=== PATIENT | female | born 1960 | race Caucasian/White ===

== ENCOUNTER 2017-03-01 00:45 | Inpatient (IN) ==
[2017-03-01] MEDS ORDERED: *HR* Morphine 2 MG/ML SYRINGE IVP PRN (05:38)
[2017-03-01] MEDS: 0.9 % Sodium Chloride 1,000 ML IVC SCH (06:11)
[2017-03-01 06:52] LABS: Basophils # 0.1 K/mcL (0.0-0.2); Basophils % 0.5 %; Eosinophils # 0.1 K/mcL (0.0-0.6); Eosinophils % 0.6 %; Hematocrit 39.4 % (35.3-44.9); Hemoglobin 12.8 g/dL (11.5-15.4); Immature Granulocytes % 1.7 % (0-4); Lymphocytes # 1.4 K/mcL (0.6-4.6); Lymphocytes % 12.4 %; Mean Corpuscular HGB Conc 32.5 g/dL (31.6-35.5); Mean Corpuscular Hemoglobin 29.8 pg (28.0-33.3); Mean Corpuscular Volume 91.6 fL (83.0-100.0); Mean Platelet Volume 9.8 fL (9.4-12.4); Monocytes # 1.1 K/mcL (0.0-1.3); Monocytes % 9.9 %; Neutrophils # 8.3 K/mcL (1.6-8.9); Platelet Count 254 K/mcL (140-400); Segmented Neutrophils % 74.9 %
[2017-03-01 07:18] LABS: Alanine Aminotransferase 13 Units/L (0-55); Albumin 1.5 g/dL (3.5-5.0); Albumin/Globulin Ratio 0.3 (1.1-2.2); Alkaline Phosphatase 143 Units/L (38-126); Aspartate Amino Transferase 16 Units/L (5-34); BUN/Creatinine Ratio 16 (6-26); Bilirubin,Total 0.2 mg/dL (0.2-1.2); Blood Urea Nitrogen 12 mg/dL (7-20); Calcium 7.9 mg/dL (8.6-10.8); Carbon Dioxide 28 mEq/L (19-29); Chloride 101 mEq/L (98-109); Globulin 4.6 g/dL (2.4-3.5); Glucose 344 mg/dL (70-99); Osmolality,Calculated 297 (280-300); Potassium 3.9 mEq/L (3.5-4.5); Sodium 137 mEq/L (136-145); Total Protein 6.1 g/dL (6.0-8.3); eGFR For African Americans > 60 (> 60); eGFR For Non-African Americans > 60 (> 60)
[2017-03-01] MEDS ORDERED: 0.9 % Sodium Chloride 1,000 ML IVC ONE (08:46)
[2017-03-01] MEDS ORDERED: Ondansetron 4 MG/2 ML VIAL IVP PRN (08:46)
[2017-03-01] MEDS ORDERED: D5% in 0.9% NACL 1,000 ML IVC SCH (09:00)
[2017-03-01 09:08] LABS: Basophils # 0.1 K/mcL (0.0-0.2); Basophils % 0.4 %; Eosinophils # 0.1 K/mcL (0.0-0.6); Eosinophils % 0.4 %; Hematocrit 38.9 % (35.3-44.9); Hemoglobin 12.6 g/dL (11.5-15.4); Immature Granulocytes % 1.6 % (0-4); Lymphocytes # 1.3 K/mcL (0.6-4.6); Lymphocytes % 10.8 %; Mean Corpuscular HGB Conc 32.4 g/dL (31.6-35.5); Mean Corpuscular Hemoglobin 29.6 pg (28.0-33.3); Mean Corpuscular Volume 91.3 fL (83.0-100.0); Mean Platelet Volume 9.5 fL (9.4-12.4); Monocytes # 1.2 K/mcL (0.0-1.3); Neutrophils # 9.4 K/mcL (1.6-8.9); Platelet Count 246 K/mcL (140-400); Red Blood Count 4.26 M/mcL (3.82-4.97); Red Cell Distribution Width 12.1 % (11.5-14.5); Segmented Neutrophils % 76.8 %
[2017-03-01 09:19] LABS: BUN/Creatinine Ratio 14 (6-26); Blood Urea Nitrogen 10 mg/dL (7-20); Carbon Dioxide 29 mEq/L (19-29); Chloride 102 mEq/L (98-109); Glucose 339 mg/dL (70-99); Osmolality,Calculated 298 (280-300); Potassium 3.8 mEq/L (3.5-4.5); Sodium 138 mEq/L (136-145); eGFR For African Americans > 60 (> 60); eGFR For Non-African Americans > 60 (> 60)
--- NOTE | 2017-03-01 09:40 | General Surg History&Physical ---
Date of Encounter: 03/01/17 Time of Encounter: 07:30 Assessment and Plan (1) Abdominal pain Current Visit: Yes Status: Acute 57F with 10 day history of abdominal pain, now improved from when original pain started; CT scan suggestive of perforation with subsequent abscess, likley of either appendix or diveticula, most likley appendix; - NPO -IVF - abx: zosyn, likely will need PICC line for 6 weeks of antibiotics - pain control - dvt prophylaxis - activity as tolerated - incentive spirometer - albuterol PRN - IR for drainage of pelvic abscess: follow up cultures and gram stain The assessment and plan as outlined above was discussed with the patient and/or family members who expressed understanding and agreement. All questions were answered. Qualifiers: Abdominal location: lower abdomen, unspecified Qualified Code(s): R10.30 - Lower abdominal pain, unspecified (2) Pelvic abscess in female Current Visit: Yes Status: Acute see above The assessment and plan as outlined above was discussed with the patient and/or family members who expressed understanding and agreement. All questions were answered. (3) Sepsis Current Visit: Yes Status: Acute see above The assessment and plan as outlined above was discussed with the patient and/or family members who expressed understanding and agreement. All questions were answered. Qualifiers: Sepsis type: sepsis due to unspecified organism Qualified Code(s): A41.9 - Sepsis, unspecified organism History of Present Illness Chief complaint: abdominal pain HPI: Ms. Bliss is a 57 year old female presents with 10 day history of abdominal pain. The pain began on 02/19 in her lower abdomen/suprapubic region. The pain was sharp and associated with nausea and anorexia (reports eating the equivalent of 3 meals over the course of 7 days). No reports of fevers, chills , chest pain, nor shortness of breath. The patient states that her pain did get better, but was still significant enough to go to her local ER for evaluation. A CT scan was obtained, which I personally reviewed and interpreted myself, that demonstrates a loculated pelvic abscess, no evidence of free air. Past Med Surg Social Fam HX - Past Medical History Medical history: COPD, diabetes, hyperlipidemia, hypertension Psychiatric history: anxiety, depression - Past Surgical History Surgical History: other - Social History Smoking Status: Current every day smoker Smokeless Tobacco Status: No Alcohol use: occasionally Drug use: none - Family History Mother Adopted: No Living Status: Hx Family Cancer: Yes Father Adopted: No Living Status: Hx Family Endocrine Disorder: Yes Medications and Allergies No Known Home Drugs 03/01/17 [History] 3 Allergy/AdvReac Type Severity Reaction Status Date / Time No Known Allergies Allergy Verified 03/01/17 05:37 Review of Systems All systems PM: A 10-system review of systems was performed and is negative for pertinent findings except as documented above in the HPI. General Surgery Exam Initial Vital Signs Temp Pulse Resp BP Pulse Ox 98.5 F 93 17 157/83 94 03/01/17 04:38 03/01/17 04:38 03/01/17 04:38 03/01/17 04:38 03/01/17 04:38 - General physical appearance well developed - Eyes other (no scleral icterus) - ENT normocephalic - Respiratory normal expansion, normal respiratory effort, clear to auscultation - Cardiovascular Cardiovascular exam: Present: RRR - Abdomen Abdomen general surgery: Present: tender (minimally tender in all quadrants) Hernia: Present: none - Integumentary Integumentary general surgery: Present: warm and dry - Neurologic Present: CN 2-12 grossly intact - Psychiatric Psychiatric general surgery: Present: A&Ox3 Results - Labs 03/01/17 09:01 03/01/17 09:01 Abnormal lab results WBC 12.3 K/mcL (4.3-11.1) H 03/01/17 09:01 Neutrophils # 9.4 K/mcL (1.6-8.9) H 03/01/17 09:01 Glucose 339 mg/dL (70-99) H 03/01/17 09:01 POC Glucose 316 (58-89) H 03/01/17 07:47 Calcium 8.0 mg/dL (8.6-10.8) L 03/01/17 09:01 Alkaline Phosphatase 143 Units/L (38-126) H 03/01/17 06:43 Albumin 1.5 g/dL (3.5-5.0) L 03/01/17 06:43 Globulin 4.6 g/dL (2.4-3.5) H 03/01/17 06:43 Albumin/Globulin Ratio 0.3 (1.1-2.2) L 03/01/17 06:43 Diabetes panel 03/01/17 03/01/17 Range/Units 06:43 09:01 Sodium 137 138 (136-145) mEq/L Potassium 3.9 3.8 (3.5-4.5) mEq/L Chloride 101 102 (98-109) mEq/L Carbon Dioxide 28 29 (19-29) mEq/L BUN 12 10 (7-20) mg/dL Creatinine 0.77 0.71 (0.57-1.11) mg/dL Glucose 344 H 339 H (70-99) mg/dL Calcium 7.9 L 8.0 L (8.6-10.8) mg/dL AST 16 (5-34) Units/L ALT 13 (0-55) Units/L Alkaline Phosphatase 143 H (38-126) Units/L Albumin 1.5 L (3.5-5.0) g/dL Calcium panel 03/01/17 03/01/17 Range/Units 06:43 09:01 Calcium 7.9 L 8.0 L (8.6-10.8) mg/dL Albumin 1.5 L (3.5-5.0) g/dL Pituitary panel 03/01/17 03/01/17 Range/Units 06:43 09:01 Sodium 137 138 (136-145) mEq/L Potassium 3.9 3.8 (3.5-4.5) mEq/L Chloride 101 102 (98-109) mEq/L Carbon Dioxide 28 29 (19-29) mEq/L BUN 12 10 (7-20) mg/dL Creatinine 0.77 0.71 (0.57-1.11) mg/dL Glucose 344 H 339 H (70-99) mg/dL Calcium 7.9 L 8.0 L (8.6-10.8) mg/dL Adrenal panel 03/01/17 03/01/17 Range/Units 06:43 09:01 Sodium 137 138 (136-145) mEq/L Potassium 3.9 3.8 (3.5-4.5) mEq/L Chloride 101 102 (98-109) mEq/L Carbon Dioxide 28 29 (19-29) mEq/L BUN 12 10 (7-20) mg/dL Creatinine 0.77 0.71 (0.57-1.11) mg/dL Glucose 344 H 339 H (70-99) mg/dL Calcium 7.9 L 8.0 L (8.6-10.8) mg/dL Total Bilirubin 0.2 (0.2-1.2) mg/dL AST 16 (5-34) Units/L ALT 13 (0-55) Units/L Alkaline Phosphatase 143 H (38-126) Units/L Albumin 1.5 L (3.5-5.0) g/dL All other labs normal. - Imaging CT scan - abdomen: image reviewed CT scan - chest: image reviewed (abscess, no free air; no obvious diverticulosis by my eye)
[2017-03-01] MEDS ORDERED: Dextrose Gel 15 GM PO PRN ×2 (11:40)
[2017-03-01] MEDS ORDERED: D5% in Water 1,000 ML IVC PRN (11:40)
[2017-03-01] MEDS ORDERED: *HR* Dextrose 50 % in Water (Syg) 50 ML SYRINGE IVP PRN (11:40)
[2017-03-01] MEDS: Ondansetron 4 MG/2 ML VIAL IVP PRN (11:49)
[2017-03-01] MEDS: *HR* Morphine 2 MG/ML SYRINGE IVP PRN ×2 (11:50→15:58)
[2017-03-01 12:28] LABS: INR 1.1; Prothrombin Time 12.3 Seconds (9.4-12.1)
[2017-03-01] MEDS ORDERED: *HR* FentaNYL (PF) 100 MCG/2 ML VIAL IVP ONE (13:21)
[2017-03-01] MEDS ORDERED: *HR* Midazolam HCl 2 MG/2 ML VIAL IVP ONE (13:21)
[2017-03-01] MEDS: Insulin LISPRO 300 UNITS/3 ML VIAL SQ SCH ×2 (13:30→18:35)
[2017-03-01] MEDS ORDERED: 0.9 % Sodium Chloride 500 ML ONE (13:35)
--- NOTE | 2017-03-01 14:13 | Pre-Sedation Evaluation ---
Pre-sedation evaluation - Pre-sedation checklist Date of procedure: 03/01/17 Procedure: drain place Recent Vitals: Last Vital Signs Temp 97.9 F 03/01/17 12:42 Pulse 79 03/01/17 14:04 Resp 13 03/01/17 14:04 BP 171/100 03/01/17 14:04 Pulse Ox 93 03/01/17 14:04 H&P (including ROS) documented in medical record: Yes Previous reaction to sedatives/anesthetics: No Dietary Status: NPO after Midnight Airway Assessment: Patient can open mouth completely, TMJ function normal, Micrognathia (under-bite, receding chin) absent, Neck with adequate range of motion Dentition: poor dentition ASA Classification *see protocol: CLASS II-Mild systemic disease Plan of Care: Pt appropriate candidate for procedure/moderate/conscious sedation , Risks/benefits of procedure/sedation discussed w/ patient/family, If not NPO; Risk of intake outweiged by necessity to perform procedure
--- NOTE | 2017-03-01 14:15 | IR Procedure Note ---
Date of procedure: 03/01/17 Consent Obtained: Verbal consent, Written consent Timeout: Correct patient and procedure verified, Correct site verified, Time out performed, Skin prep completed Local anesthetic: Lidocaine 1% Indications: pelvic abscess Procedure Performed: 10F pigtail drain placement Site/Technique: pelvis Results/Findings: 30 cc pus aspirated and sent to lab Estimated blood loss (cc): 2 Complications: None; Tolerated procedure well Post Procedure Treatment Plan: bedrest x 1 hour; LISA bulb suction with 10 cc saline flushes bid
[2017-03-01] MEDS ORDERED: Piperacillin/Tazobactam 3.375 GM in D5% in Water 50 ML IVPB SCH (16:00)
[2017-03-01] MEDS ORDERED: Ringers Solution, Lactated 500 ML IVC ONE (20:45)
[2017-03-02] MEDS: Piperacillin/Tazobactam 3.375 GM in D5% in Water 50 ML IVPB SCH ×3 (00:59→17:00)
[2017-03-02] MEDS: Insulin LISPRO 300 UNITS/3 ML VIAL SQ SCH ×4 (01:00→17:47)
[2017-03-02] MEDS ORDERED: *HR* Enoxaparin 40 MG/0.4 ML SYRINGE SQ SCH (06:00)
[2017-03-02] MEDS: *HR* Enoxaparin 40 MG/0.4 ML SYRINGE SQ SCH (06:24)
[2017-03-02] MEDS: *HR* Morphine 2 MG/ML SYRINGE IVP PRN (06:41)
[2017-03-02 07:01] LABS: Basophils % 0.2 %; Hematocrit 39.4 % (35.3-44.9); Hemoglobin 12.4 g/dL (11.5-15.4); Immature Granulocytes % 0.9 % (0-4); Lymphocytes # 1.4 K/mcL (0.6-4.6); Lymphocytes % 7.6 %; Mean Corpuscular HGB Conc 31.5 g/dL (31.6-35.5); Mean Corpuscular Hemoglobin 29.4 pg (28.0-33.3); Mean Corpuscular Volume 93.4 fL (83.0-100.0); Mean Platelet Volume 9.7 fL (9.4-12.4); Monocytes # 1.1 K/mcL (0.0-1.3); Monocytes % 6.4 %; Platelet Count 251 K/mcL (140-400); Red Blood Count 4.22 M/mcL (3.82-4.97); Red Cell Distribution Width 12.3 % (11.5-14.5); Segmented Neutrophils % 84.9 %
[2017-03-02] MEDS: 0.9 % Sodium Chloride 1,000 ML IVC SCH (12:33)
--- NOTE | 2017-03-02 13:37 | General Surgery Progress Note ---
Date of Encounter: 03/02/17 Time of Encounter: 11:00 - Assessment and Plan (1) Perforated appendicitis Current Visit: Yes Status: Acute 57F with perforated appendicitis; pain is tolerable; tolerating clear; s/p drainage by VIR - advance to regular diet - PO pain meds - cont to trend WBC, temperature - repeat CT scan on 03/05 - cont to trend drain output - cont abx regimen - awaiting return of bowel function (2) Abdominal pain Current Visit: Yes Status: Acute see above Qualifiers: Abdominal location: lower abdomen, unspecified Qualified Code(s): R10.30 - Lower abdominal pain, unspecified (3) Pelvic abscess in female Current Visit: Yes Status: Acute 2/2 perforated appendix - cont with drain - cont with abx; follow up culture - trend wbc, temp (4) Sepsis Current Visit: Yes Status: Acute leukocytosis, afebrile, (+)pelvic abcess s/p drain - cont with drain, abx, trend wbc Qualifiers: Sepsis type: sepsis due to unspecified organism Qualified Code(s): A41.9 - Sepsis, unspecified organism (5) Hyperglycemia Current Visit: Yes Status: Acute blood sugars at 339, likely a combination of co-morbidity, sepsis, and diet - change insulin regimen to high dose protocol - cont with treatment of sepsis - advancing diet Subjective Patient reports: no new complaints, feels better, still having pain, pain is less Objective Vital Signs - Last 8 Hours Temp Pulse Resp BP Pulse Ox 03/02/17 08:41 99.3 F 77 15 125/71 93 03/02/17 07:53 92 Intake and Output 03/01/17 03/02/17 03/02/17 23:59 07:59 15:59 Intake Total 450 / 450 352 / 352 Output Total 50 / 50 50 / 50 10 Balance -50 / -50 400 / 400 342 / 342 Intake: IV Fluids 50 / 50 Zosyn 3.375 GM In Dextrose 5% ( 50 / 50 ADD-[place]) 50 ML @ 12.5 mls/ hr IVPB Q8HR ARY Rx#:[id number] Oral 400 / 400 352 / 352 Output: Wound Drainage 50 / 50 50 / 50 10 / 10 Right Lower Back 50 / 50 50 / 50 10 Other: Meal Breakfast Percent of Meal Consumed 50% # Voids 3 Blood Glucose* 299 254 272 - General physical appearance well developed, well nourished, no distress - Respiratory normal expansion, normal respiratory effort - Cardiovascular Cardiovascular exam: Present: RRR - Abdomen Abdomen: Present: soft, tender Abdominal Tenderness: suprapubic - Integumentary no rash, other (drain with purulent/serosanguinous drainage) - Neurologic CN 2-12 grossly intact - Labs 03/02/17 06:50 03/01/17 09:01 - VTE Documentation of Mechanical Device: Intermittent pneumatic compression device Consult Discharge Plan - Plan Referrals: Mona Wilburn, OENOLOGIST [Primary Care Provider] -
[2017-03-03] MEDS: 0.9 % Sodium Chloride 1,000 ML IVC SCH (00:32)
[2017-03-03] MEDS: Piperacillin/Tazobactam 3.375 GM in D5% in Water 50 ML IVPB SCH ×4 (00:34→23:27)
[2017-03-03] MEDS: Insulin LISPRO 300 UNITS/3 ML VIAL SQ SCH ×4 (00:45→17:56)
[2017-03-03] MEDS: Ondansetron 4 MG/2 ML VIAL IVP PRN (00:51)
[2017-03-03 06:12] LABS: Basophils % 0.2 %; Eosinophils % 0.1 %; Hematocrit 38.2 % (35.3-44.9); Hemoglobin 12.2 g/dL (11.5-15.4); Immature Granulocytes % 0.9 % (0-4); Lymphocytes # 1.4 K/mcL (0.6-4.6); Lymphocytes % 9.5 %; Mean Corpuscular HGB Conc 31.9 g/dL (31.6-35.5); Mean Corpuscular Hemoglobin 29.5 pg (28.0-33.3); Mean Corpuscular Volume 92.3 fL (83.0-100.0); Mean Platelet Volume 10.1 fL (9.4-12.4); Monocytes # 0.9 K/mcL (0.0-1.3); Monocytes % 6.3 %; Neutrophils # 12.3 K/mcL (1.6-8.9); Platelet Count 236 K/mcL (140-400); Red Blood Count 4.14 M/mcL (3.82-4.97); Red Cell Distribution Width 12.3 % (11.5-14.5)
[2017-03-03 06:24] LABS: BUN/Creatinine Ratio 13 (6-26); Blood Urea Nitrogen 9 mg/dL (7-20); Calcium 7.9 mg/dL (8.6-10.8); Carbon Dioxide 27 mEq/L (19-29); Chloride 101 mEq/L (98-109); Glucose 244 mg/dL (70-99); Magnesium 1.2 mg/dL (1.6-2.6); Osmolality,Calculated 287 (280-300); Phosphorous 2.2 mg/dL (2.3-4.7); Potassium 3.5 mEq/L (3.5-4.5); Sodium 135 mEq/L (136-145); eGFR For African Americans > 60 (> 60); eGFR For Non-African Americans > 60 (> 60)
[2017-03-03] MEDS ORDERED: Potassium Phosphate 44 MEQ in 0.9 % Sodium Chloride 250 ML IVPB ONE (06:27)
[2017-03-03] MEDS ORDERED: Magnesium Sulfate 2 GM in D5% in Water 100 ML IVPB ONE (06:27)
[2017-03-03] MEDS: *HR* Enoxaparin 40 MG/0.4 ML SYRINGE SQ SCH (06:33)
[2017-03-03] MEDS ORDERED: *HR* OxyCODONE/APAP 5/325 TABLET PO PRN ×2 (08:42)
--- NOTE | 2017-03-03 10:14 | General Surgery Progress Note ---
Date of Encounter: 03/03/17 Time of Encounter: 10:14 - Assessment and Plan (1) Perforated appendicitis Current Visit: Yes Status: Acute 57F with perforated appendicitis; pain is tolerable; soft diet; s/p drainage by VIR cont with current diet change to PO pain meds activity as tolerated cont with drain cont with current abx regimen SLIV because patient is tolerating diet albuterol PRN for over the weekend - AM labs daily until WBC wnl x 2 draws - replete lytes PRN - diet/activity as tolerated - CT scan on 03/05 - if abscess cavity has decreased in size, then transition to PO abx and order labs (CBC) for AM of 03/06 - will plan for d/c on 03/06 if pain controlled, still tolerating diet and having bowel function, and if labs remain wnl after PO abx (2) Abdominal pain Current Visit: Yes Status: Acute see above Qualifiers: Abdominal location: lower abdomen, unspecified Qualified Code(s): R10.30 - Lower abdominal pain, unspecified (3) Pelvic abscess in female Current Visit: Yes Status: Acute 2/2 perforated appendix see above (4) Sepsis Current Visit: Yes Status: Acute see above Qualifiers: Sepsis type: sepsis due to unspecified organism Qualified Code(s): A41.9 - Sepsis, unspecified organism (5) Hyperglycemia Current Visit: Yes Status: Acute blood sugars at 339, likely a combination of co-morbidity, sepsis, and diet - change insulin regimen to high dose protocol - cont with treatment of sepsis - d/c IVF - advancing diet Subjective Patient reports: no new complaints, feels better, still having pain, tolerating a regular diet, flatus, no bowel movement, afebrile Objective Vital Signs - Last 8 Hours Temp Pulse Resp BP Pulse Ox 03/03/17 07:06 98.8 F 76 16 129/77 94 03/03/17 04:20 98.1 F 76 18 153/83 94 Intake and Output 03/02/17 03/03/17 03/03/17 23:59 07:59 15:59 Intake Total 1050 / 1050 350 / 350 240 / 240 Output Total 300 / 300 10 / 10 0 / 0 Balance 750 / 750 340 / 340 240 / 240 Intake: IV Fluids 1050 / 1050 50 / 50 0.9 % Sodium Chloride 1,000 ML 1000 / 1000 @ 125 mls/hr IVC .Q8H ARY Rx#: [id number] Zosyn 3.375 GM In Dextrose 5% ( 50 / 50 50 / 50 ADD-[place]) 50 ML @ 12.5 mls/ hr IVPB Q8HR ARY Rx#:[id number] Oral 300 / 300 240 / 240 Output: Urine 300 / 300 Wound Drainage 10 0 / 0 Right Lower Back 10 0 / 0 Other: Meal Breakfast Percent of Meal Consumed 60% # Voids 1 1 # Urine Diapers 1 Weight 84 kg Blood Glucose* 350 246 Patient Weight 03/03/17 23:59 Weight 84 kg - General physical appearance well developed, well nourished, no distress - ENT normocephalic - Respiratory normal expansion, normal respiratory effort, clear to auscultation (slight expiratory wheeze) - Cardiovascular Cardiovascular exam: Present: RRR - Abdomen Abdomen: Present: soft, tender Abdominal Tenderness: suprapubic - Integumentary no rash, other (drain still with purulent output) - Neurologic CN 2-12 grossly intact - Psychiatric oriented to time, oriented to person, oriented to place - Labs 03/03/17 05:34 03/03/17 05:34 Diabetes panel 03/03/17 Range/Units 05:34 Sodium 135 L (136-145) mEq/L Potassium 3.5 (3.5-4.5) mEq/L Chloride 101 (98-109) mEq/L Carbon Dioxide 27 (19-29) mEq/L BUN 9 (7-20) mg/dL Creatinine 0.71 (0.57-1.11) mg/dL Glucose 244 H (70-99) mg/dL Calcium 7.9 L (8.6-10.8) mg/dL Calcium panel 03/03/17 Range/Units 05:34 Calcium 7.9 L (8.6-10.8) mg/dL Phosphorus 2.2 L (2.3-4.7) mg/dL Pituitary panel 03/03/17 Range/Units 05:34 Sodium 135 L (136-145) mEq/L Potassium 3.5 (3.5-4.5) mEq/L Chloride 101 (98-109) mEq/L Carbon Dioxide 27 (19-29) mEq/L BUN 9 (7-20) mg/dL Creatinine 0.71 (0.57-1.11) mg/dL Glucose 244 H (70-99) mg/dL Calcium 7.9 L (8.6-10.8) mg/dL Adrenal panel 03/03/17 Range/Units 05:34 Sodium 135 L (136-145) mEq/L Potassium 3.5 (3.5-4.5) mEq/L Chloride 101 (98-109) mEq/L Carbon Dioxide 27 (19-29) mEq/L BUN 9 (7-20) mg/dL Creatinine 0.71 (0.57-1.11) mg/dL Glucose 244 H (70-99) mg/dL Calcium 7.9 L (8.6-10.8) mg/dL - VTE Documentation of Mechanical Device: Intermittent pneumatic compression device Consult Discharge Plan - Plan Referrals: Mona Wilburn, MANAGER UTILIZATION REVIEW [Primary Care Provider] -
[2017-03-03] MEDS: Ipratropium/Albuterol Neb 3 ML IH SCH ×2 (15:35→22:34)
[2017-03-04] MEDS: Insulin LISPRO 300 UNITS/3 ML VIAL SQ SCH ×4 (01:33→18:31)
[2017-03-04] MEDS: Ipratropium/Albuterol Neb 3 ML IH SCH ×4 (04:46→21:50)
[2017-03-04] MEDS: *HR* Enoxaparin 40 MG/0.4 ML SYRINGE SQ SCH (04:56)
[2017-03-04] MEDS: Piperacillin/Tazobactam 3.375 GM in D5% in Water 50 ML IVPB SCH ×2 (09:26→16:53)
--- NOTE | 2017-03-04 13:25 | General Surgery Progress Note ---
Date of Encounter: 03/04/17 Time of Encounter: 13:20 - Assessment and Plan (1) Perforated appendicitis Current Visit: Yes Status: Acute We will plan to treat the constipation with magnesium citrate today followed by CAT scan of the abdomen and pelvis tomorrow with GI contrast to see if an abscess has formed in treatment of perforated appendicitis with antibiotic Subjective Narrative: The patient states that she feels worse today and has not had a bowel movement since admission to the hospital. She is tolerating regular diet with no nausea or vomiting. She is currently under antibiotic therapy for perforated appendicitis. I plan on treating the constipation with magnesium citrate followed by prep for CAT scan tomorrow to see if abscess has developed in treatment of the perforated appendicitis. Objective Vital Signs - Last 8 Hours Temp Pulse Resp BP Pulse Ox 03/04/17 11:20 97.6 F 90 18 119/58 93 03/04/17 09:59 18 93 03/04/17 06:53 98.2 F 85 18 132/68 93 Intake and Output 03/03/17 03/04/17 03/04/17 23:59 07:59 15:59 Intake Total 1130 / 1130 50 / 50 600 / 600 Output Total 500 / 500 Balance 1120 / 1120 -450 / -450 600 / 600 Intake: IV Fluids 50 / 50 50 / 50 Zosyn 3.375 GM In Dextrose 5% ( 50 / 50 50 / 50 ADD-[place]) 50 ML @ 12.5 mls/ hr IVPB Q8HR ARY Rx#:[id number] Oral 1080 / 1080 600 / 600 Output: Urine 500 / 500 Wound Drainage Right Lower Back Other: Meal Dinner Breakfast Percent of Meal Consumed 80% 100% # Voids 1 1 Blood Glucose* 261 244 346 - General physical appearance well developed, well nourished, obese - Respiratory normal expansion, normal respiratory effort, clear to percussion, clear to auscultation - Cardiovascular Cardiovascular exam: Present: RRR, no murmurs/rubs/gallops - Abdomen Abdomen: Present: bowel sounds present, soft, distended - Neurologic normal coordination, normal sensation - Psychiatric oriented to time, oriented to person, oriented to place, speech is normal, memory intact - Labs 03/03/17 05:34 03/03/17 05:34 - VTE Documentation of Mechanical Device: Intermittent pneumatic compression device Consult Discharge Plan - Plan Referrals: Mona Wilburn, SIGN POSTER [Primary Care Provider] -
[2017-03-04] MEDS: Ondansetron 4 MG/2 ML VIAL IVP PRN (16:53)
[2017-03-04] MEDS ORDERED: MOM Conc 10 ML UD.LIQ PO ONE (19:12)
[2017-03-04] MEDS: *HR* Metoprolol 5 MG/5 ML VIAL IVP PRN (20:05)
[2017-03-05] MEDS: Piperacillin/Tazobactam 3.375 GM in D5% in Water 50 ML IVPB SCH ×3 (00:17→18:40)
[2017-03-05] MEDS: Insulin LISPRO 300 UNITS/3 ML VIAL SQ SCH ×4 (00:18→18:40)
[2017-03-05] MEDS: Ipratropium/Albuterol Neb 3 ML IH SCH ×4 (04:35→21:41)
[2017-03-05] MEDS: *HR* Enoxaparin 40 MG/0.4 ML SYRINGE SQ SCH (06:00)
--- NOTE | 2017-03-05 12:22 | General Surgery Progress Note ---
Date of Encounter: 03/05/17 Time of Encounter: 12:15 - Assessment and Plan (1) Perforated appendicitis Current Visit: Yes Status: Acute We will plan to treat the constipation with magnesium citrate today followed by CAT scan of the abdomen and pelvis tomorrow with GI contrast to see if an abscess has formed in treatment of perforated appendicitis with antibiotic 03/05/2017. The patient feels better and has made clinical improvement however the CAT scan demonstrates residual fluid collection in the pelvis. Her temperature curve is flat. I am repeating her CBC tomorrow morning. She has had urinary frequency with dribbling area a post void residual was greater than 1000 mL. We will plan to place a Tomlinson catheter and obtain a urinalysis. Subjective Narrative: The patient underwent CAT scan of the abdomen today. She states that she feels much better than she did yesterday or last week. Her abdominal pain is almost gone. CAT scan demonstrates the target abscess has been completely drained however there is residual presacral abscess or fluid collection of 2.5 x 4 cm. It is noted that the patient has had frequent trips to the restroom and is unable to urinate. A bladder scan demonstrated a residual of 1000 mL. We will plan to place a Tomlinson catheter for acute urinary retention and send urinalysis. We will continue IV antibiotics today. Objective Vital Signs - Last 8 Hours Temp Pulse Resp BP Pulse Ox 03/05/17 12:05 98.7 F 89 16 159/78 95 03/05/17 10:29 16 95 03/05/17 07:23 98.5 F 89 16 174/79 92 Intake and Output 03/04/17 03/05/17 03/05/17 23:59 07:59 15:59 Intake Total 50 / 50 350 / 350 Output Total 50 / 50 Balance 0 / 0 350 / 350 Intake: IV Fluids 50 / 50 50 / 50 Zosyn 3.375 GM In Dextrose 5% ( 50 / 50 50 / 50 ADD-[place]) 50 ML @ 12.5 mls/ hr IVPB Q8HR ARY Rx#:[id number] Oral 300 / 300 Output: Emesis 50 / 50 Other: Stool Size Moderate Stool Consistency loose soft Stool Characteristics Normal for Patient Stool Color Brown # Voids 3 1 # Bowel Movements 1 Weight 84.141 kg Blood Glucose* 251 182 175 Patient Weight 03/05/17 23:59 Weight 84.141 kg - General physical appearance well developed, well nourished, obese - Respiratory normal expansion, normal respiratory effort, clear to percussion, clear to auscultation - Cardiovascular Cardiovascular exam: Present: RRR, no murmurs/rubs/gallops - Abdomen Abdomen: Present: bowel sounds present, soft, non tender (Drain in place. Serosanguineous drainage) - Integumentary no rash, no growths, no abnormal pigmentation - Neurologic normal coordination, normal sensation - Psychiatric oriented to time, oriented to person, oriented to place, speech is normal, memory intact - Labs 03/03/17 05:34 03/03/17 05:34 - VTE Documentation of Mechanical Device: Intermittent pneumatic compression device Consult Discharge Plan - Plan Referrals: Mona Wilburn MAINTENANCE INSTRUCTOR [Primary Care Provider] -
[2017-03-05 12:44] LABS: Bilirubin,Urine Negative (Negative); Blood,Urine Negative (Negative); Clarity,Urine Clear (Clear); Color,Urine Yellow (Yellow); Glucose,Urine (UA) 500 mg/dL (Normal); Ketones,Urine Negative (Negative); Leukocyte Esterase,Urine Negative (Negative); Nitrite,Urine Negative (Negative); PH,Urine 7.5 pH Units (5.0-8.0); Protein,Urine 100 mg/dL (Neg-Trace); Specific Gravity,Urine 1.012 (1.010-1.025); Urobilinogen,Urine Normal (Normal)
[2017-03-05 12:46] LABS: Bacteria,Urine None Seen per hpf (None-Few); Hyaline Casts,Urine None Seen per lpf (None-Few); RBC,Urine 0-3 per hpf (0-3); Squamous Epithelial Cell,Urine Moderate per lpf (None-Few); WBC,Urine 0-3 per hpf (0-3)
[2017-03-06] MEDS: Insulin LISPRO 300 UNITS/3 ML VIAL SQ SCH ×3 (00:05→12:13)
[2017-03-06 04:32] LABS: Basophils % 0.5 %; Eosinophils % 0.4 %; Hematocrit 39.2 % (35.3-44.9); Hemoglobin 12.3 g/dL (11.5-15.4); Immature Granulocytes % 1.1 % (0-4); Lymphocytes # 1.1 K/mcL (0.6-4.6); Lymphocytes % 13.4 %; Mean Corpuscular HGB Conc 31.4 g/dL (31.6-35.5); Mean Corpuscular Hemoglobin 29.1 pg (28.0-33.3); Mean Corpuscular Volume 92.9 fL (83.0-100.0); Mean Platelet Volume 9.6 fL (9.4-12.4); Monocytes # 0.8 K/mcL (0.0-1.3); Monocytes % 9.5 %; Platelet Count 329 K/mcL (140-400); Red Blood Count 4.22 M/mcL (3.82-4.97); Red Cell Distribution Width 12.4 % (11.5-14.5); Segmented Neutrophils % 75.1 %
[2017-03-06] MEDS: Piperacillin/Tazobactam 3.375 GM in D5% in Water 50 ML IVPB SCH ×3 (06:17→16:20)
[2017-03-06] MEDS: *HR* Enoxaparin 40 MG/0.4 ML SYRINGE SQ SCH (06:20)
--- NOTE | 2017-03-06 09:33 | Discharge Summary ---
Date of Encounter: 03/06/17 Time of Encounter: 09:31 - Discharge Diagnosis (1) Perforated appendicitis Priority: Primary Status: Acute Comments: Started on IV antibiotics; repeat CT scan on 03/05 demonstrated significant interval decrease of abscess s/p drainage; (2) Pelvic abscess in female Priority: Secondary Status: Acute Comments: see above (3) Sepsis Priority: Secondary Status: Acute Comments: s/p perf appendix; grew E.coli; pansusceptible Qualifiers: Qualified Code(s): A41.51 - Sepsis due to Escherichia coli [E. coli] (4) Hyperglycemia Priority: Secondary Status: Acute Comments: reactive to sepsis and IVF administration; likely also underlying DM; - Discharge Medications Prescriptions: OxyCODONE/APAP 5/325 [Percocet 5/325 MG] 2 each PO Q6HR PRN 5 Days #40 tablet PRN Reason: Severe Pain Amoxicillin/Clavulanate [Augmentin] 875 mg PO BIDWM 14 Days #28 tablet Docusate [Colace] 200 mg PO DAILY 15 Days #30 capsule Tamsulosin [Flomax] 0.4 mg PO DAILY 5 Days #5 capsule Home Medications: Amoxicillin/Clavulanate [Augmentin] 875 mg PO BIDWM 14 Days #28 tablet 03/06/17 [Rx] Docusate [Colace] 200 mg PO DAILY 15 Days #30 capsule 03/06/17 [Rx] OxyCODONE/APAP 5/325 [Percocet 5/325 MG] 2 each PO Q6HR PRN 5 Days #40 tablet [Rx] Tamsulosin [Flomax] 0.4 mg PO DAILY 5 Days #5 capsule 03/06/17 [Rx] Allergies/Adverse Reactions: 3 Allergy/AdvReac Type Severity Reaction Status Date / Time No Known Allergies Allergy Verified 03/01/17 05:37 General Surgery Exam Initial Vital Signs Temp Pulse Resp BP Pulse Ox 98.5 F 93 17 157/83 94 03/01/17 04:38 03/01/17 04:38 03/01/17 04:38 03/01/17 04:38 03/01/17 04:38 - General physical appearance well developed, well nourished, no distress - Neck no lymphadectomy - Respiratory normal expansion, normal respiratory effort - Cardiovascular Cardiovascular exam: Present: RRR - Abdomen Abdomen general surgery: Present: soft, tender (appropriately tender to palpation) Abdominal Tenderness: Present: suprapubic - Integumentary Integumentary general surgery: Present: warm and dry - Neurologic Present: CN 2-12 grossly intact - Psychiatric Psychiatric general surgery: Present: A&Ox3 Date of admission: 03/01/17 13:00 Primary care physician: Marcai Parsons Consults: 03/01/17 11:00 Consult to PICC team [Consult to Invasive Line Access Team] [CONS] Routine Reason for Consult: PICC line for penitentiary abx Line Type: PICC 03/01/17 11:42 Consult to Interventional Radiology [CONS] Routine Consulting Provider: Radiology Interventional Cols Reason for Consult: drainage Call Completed: Yes 03/01/17 12:20 Consult to Invasive Line Access Team [CONS] Routine Reason for Consult: Limited vascular access with possible penitentiary antibiotics Line Type: Midline Discharging clinician: Chilo Mcmillan Anticipated date of discharge: 03/06/17 (after 1600) - Patient Status Disposition: Home, Self-Care Condition: Good Functional capacity at discharge: independent ambulation Overall status at discharge: patient is progressing back to baseline - Discharge Instructions Instructions: Sepsis (DC) Follow Up With: Mona Wilburn, [employer] [Primary Care Provider] - Additional Instructions: no driving on narcotics activity as tolerated diet as tolerated cont to empty drain as instructed if you experience worsening abdominal pain, fevers, chills, inability to eat, chest pain, shortness of breath, or any symptoms you feel warrant evaluation, please call the office or report to nearest ED or come straight to [facility] ED - Diet and Activity Activity: increase activity as tolerated Diet: advance to your usual diet - Hospital Course Hospital course: Ms. Bliss is a 57 year old female presented with perforated appendicitis after approximately ten days of abdominal pain. On arrival she was started on IV antibiotics, had a VIR drain placed, as well as a midline for potential intermediate manager IV antibiotics She was started on a regular diet and given PO pain control. Insulin was started for control of her glucose. POD#5 - CT scan which demonstrated significant interval decrease of abscess cavity with IR drain as well as enlarged bladder 2/2 urinary retention; barton catheter was placed POD#6 - flomax was started, transitioned to PO antibiotics, removal of midline IV, and d/c home with PO antibiotics and barton catheter. Time spent discussing smoking cessation with patient: more than 10 minutes - Time Spent with Patient Total time spent providing and/or coordinating discharge services: Greater than 30 minutes Procedures and tests throughout hospitalization: CT scan - interval resolution of abscess, enlarged bladder Labs on day of discharge: Labs from last 24 hours 03/06/17 03/06/17 03/06/17 05:50 04:08 00:08 WBC 8.0 RBC 4.22 Hgb 12.3 Hct 39.2 MCV 92.9 MCH 29.1 MCHC 31.4 L RDW 12.4 Plt Count 329 MPV 9.6 Immature Gran % 1.1 Seg Neutrophils % 75.1 Lymphocytes % 13.4 Monocytes % 9.5 Eosinophils % 0.4 Basophils % 0.5 Neutrophils # 6.0 Lymphocytes # 1.1 Monocytes # 0.8 Eosinophils # 0.0 Basophils # 0.0 POC Glucose 302 H 230 H Urine Color Urine Clarity Urine pH Ur Specific [place] Urine Protein Urine Glucose (UA) Urine Ketones Urine Blood Urine Nitrite Urine Bilirubin Urine Urobilinogen Ur Leukocyte Esterase Urine Microscopic RBC Urine Microscopic WBC Ur Squamous Epith Cells Urine Bacteria Hyaline Casts 03/05/17 03/05/17 03/05/17 17:07 12:25 12:05 WBC RBC Hgb Hct MCV MCH MCHC RDW Plt Count MPV Immature Gran % Seg Neutrophils % Lymphocytes % Monocytes % Eosinophils % Basophils % Neutrophils # Lymphocytes # Monocytes # Eosinophils # Basophils # POC Glucose 245 H 175 H Urine Color Yellow Urine Clarity Clear Urine pH 7.5 Ur Specific [place] 1.012 Urine Protein 100 H Urine Glucose (UA) 500 H Urine Ketones Negative Urine Blood Negative Urine Nitrite Negative Urine Bilirubin Negative Urine Urobilinogen Normal Ur Leukocyte Esterase Negative Urine Microscopic RBC 0-3 Urine Microscopic WBC 0-3 Ur Squamous Epith Cells Moderate H Urine Bacteria None Seen Hyaline Casts None Seen - Impressions ITS Impressions Needle Aspiration CT 03/01/17 00:00 IMPRESSION: CT-guided drain placement into a pelvic abscess performed. D/ / 03/01/2017 15:44:19 Amando Javier MD / [facility] Interpreting Provider: Amando Javier MD Abdomen/Pelvis CT 03/05/17 09:30 IMPRESSION: Interval placement of a percutaneous drain into the pelvis with decompression of multiloculated abscess collection. Small residual collections persist, the largest in the presacral region measuring approximately 2.6 x 4.8 cm. Study is somewhat limited by the lack of IV contrast. Mild persistent dilation of the renal collecting system bilaterally. Interval development of small bilateral pleural effusions. D/ / 03/05/2017 10:45:50 Gordon Lea MD / [email or web address] Interpreting Provider: Gordon Lea MD
[2017-03-06] MEDS: *HR* Metoprolol 5 MG/5 ML VIAL IVP PRN (12:12)
[2017-03-06 15:45] VITALS: BP 177/84
== END 2017-03-06 17:20 | disposition home or self-care (01) | DRG 720 ==
LOC: 3NENU
PROVIDERS: ADMIT Surgery; ATTEND Surgery
PROC: IRFLUID (2017-03-01 12:00)